=== PATIENT | male | born 1945 | race Caucasian/White ===

== ENCOUNTER 2018-07-25 22:00 | Observation (INO) | payer OTHER ==
[2018-07-25] MEDS ORDERED: NS 1,000 ML IV ONE (22:11)
[2018-07-25] MEDS ORDERED: ASPIRIN 81 MG CHEWABLE TAB PO ONE (22:18)
--- NOTE | 2018-07-25 22:20 | EDPHY ---
H & P Stated Complaint: 1.5hr [employer] lower left CP sharp intermittantly lasting 5sec Time Seen by Provider: 07/25/18 22:19 HPI/ROS: HPI CHIEF COMPLAINT: Chest pain HISTORY OF PRESENT ILLNESS: 73-year-old male, history of hyperlipidemia and depression, presents emergency room with intermittent left-sided chest pain. Describes achy sensation nonradiating. Started approximately 2 hr ago EMS did check him out at his house however declined transport. Arrives to the emergency room by private vehicle. Still has ongoing left-sided chest pain. He denies radiation pain, denies nausea, denies vomiting, denies shortness of breath, denies pleuritic pain. Does report dyspnea on exertion recently as well as increasing fatigue. Past Medical History: Hyperlipidemia, depression Past Surgical History: No recent surgery Social History: Denies daily use of drugs alcohol tobacco. Family History: Noncontributory ROS REVIEW OF SYSTEMS: 10 Systems were reviewed and negative with the exception of the elements mentioned in the history of present illness. Exam Constitutional triage nursing summary reviewed, vital signs reviewed, awake/ alert. Eyes normal conjunctivae and sclera, EOMI, PERRLA. HENT normal inspection, atraumatic, moist mucus membranes, no epistaxis, neck supple/ no meningismus, no raccoon eyes. Respiratory clear to auscultation bilaterally, normal breath sounds, no respiratory distress, no wheezing. Cardiovascular rate normal, regular rhythm, no murmur, no edema, distal pulses normal. Gastrointestinal soft, non-tender, no rebound, no guarding, normal bowel sounds, no distension, no pulsatile mass. Genitourinary no CVA tenderness. Musculoskeletal no midline vertebral tenderness, full range of motion, no calf swelling, no tenderness of extremities, no meningismus, good pulses, neurovascularly intact. Skin pink, warm, & dry, no rash, skin atraumatic. Neurologic awake, alert and oriented x 3, AAOx3, moves all 4 extremities equally, motor intact, sensory intact, CN II-XII intact, normal cerebellar, normal vision, normal speech. Psychiatric normal mood/affect. Heme/Lymph/Immune no lymphadenopathy. Differential Diagnosis: Differential diagnosis includes but is not limited to: ACS, atypical chest pain, pneumothorax, pneumonia, pulmonary embolism, aortic dissection, congestive heart failure, tumor, musculoskeletal pain, esophageal pain, GERD, peptic ulcer disease, pancreatitis Medical Decision Making: Plan for this patient IV establishment with point care troponin, conveyor monitor, EKG, chest x-ray, full-dose aspirin rule out acute coronary syndrome Re-evaluation: EKG interpretation by me on record in [email or web address] system. Impression time of EKG 2211, sinus rhythm rate of 58 no signs of acute ischemia no ST elevation. ED x-ray chest one view cardiomegaly present. Otherwise unremarkable chest x- ray. Patient's troponin noted be negative Long discussion with the patient and patient's at bedside he agrees stay in the hospital overnight cardiac evaluation. Plan for admission for further cardiac evaluation. The patient has a negative troponin, nonischemic EKG, chest x-ray that shows no acute disease process except for cardiomegaly. Given the patient's cardiovascular risk factors which include his age 73, history of hyperlipidemia, hypertension, obesity and chest pain story plan for admission heart score. Spoke with the hospitalist service Dr. Olguin agrees to admit. Source: Patient - Personal History Current Tetanus/Diphtheria Vaccine: Yes Current Tetanus Diphtheria and Acellular Pertussis (TDAP): Yes - Medical/Surgical History Hx Asthma: No Hx Chronic Respiratory Disease: No Hx Diabetes: No Hx Cardiac Disease: No Hx Renal Disease: No Hx Cirrhosis: No Hx Alcoholism: No Hx HIV/AIDS: No Hx Splenectomy or Spleen Trauma: No Other PMH: right shoulder surgery - Social History Smoking Status: Never smoked Constitutional: Initial Vital Signs Temperature (C) 36.6 C 07/25/18 22:01 Heart Rate 66 07/25/18 22:01 Respiratory Rate 16 07/25/18 22:01 Blood Pressure 157/83 H 07/25/18 22:01 O2 Sat (%) 94 07/25/18 22:01 O2 Delivery Mode Nasal Cannula O2 (L/minute) 2 Allergies/Adverse Reactions: No Known Allergies Allergy (Verified 07/26/18 08:39) Home Medications: Medication Instructions Recorded Sertraline HCl [Zoloft 100mg (*)] 100 mg PO HS 07/25/18 Simvastatin [Zocor] 40 mg PO HS 07/25/18 Aspirin [Aspirin 81mg (*)] 81 mg PO HS 07/26/18 Herbals/Supplements -Info Only 1 ea PO DAILY 07/26/18 Multivitamins [Multivitamin (*)] 1 each PO HS 07/26/18 Vitamin B Complex [Vitamin B 1 each PO HS 07/26/18 Complex (OTC)] Medical Decision Making - Data Points Laboratory Results: Laboratory Results 07/25/18 22:12 07/25/18 22:12 Medications Given: Discontinued Medications Aspirin (Aspirin) 324 mg PO EDNOW ONE Stop: 07/25/18 22:19 Last Admin: 07/25/18 22:30 Dose: Not Given Sodium Chloride (Ns) 1,000 mls @ 0 mls/hr IV EDNOW ONE; Wide Open PRN Reason: Protocol Stop: 07/25/18 22:12 Last Admin: 07/25/18 22:21 Dose: 1,000 mls Nitroglycerin (Nitrostat) 0.4 mg SL EDNOW ONE Stop: 07/25/18 22:31 Last Admin: 07/25/18 22:35 Dose: 0.4 mg Point of Care Test Results: Chemistry 07/25/18 22:25 POC Troponin I 0.00 ng/mL ng/mL (0.00-0.08) Departure - Departure Disposition: [facility] Inpatient Acute Clinical Impression: Chest pain Qualifiers: Chest pain type: unspecified Qualified Code(s): R07.9 - Chest pain, unspecified Condition: Good
[2018-07-25] MEDS ORDERED: NITROGLYCERIN 0.4 MG BTL SL ONE (22:30)
[2018-07-25 22:39] LABS: PLATELET COUNT 240 10^3/uL (150-400)
[2018-07-25 22:48] LABS: INR 0.97 (0.83-1.16); PROTIME(PATIENT) 12.5 SEC (12.0-15.0)
[2018-07-26] MEDS ORDERED: ONDANSETRON 4 MG/2 ML VIAL IVP PRN (00:12)
[2018-07-26] MEDS ORDERED: ACETAMINOPHEN 325 MG TAB PO PRN (00:12)
[2018-07-26] MEDS ORDERED: HYDROCODONE/APAP 5/325 TAB PO PRN (00:12)
[2018-07-26] MEDS ORDERED: ONDANSETRON DISINTEGRATING 4 MG TAB PO PRN (00:12)
[2018-07-26] MEDS ORDERED: NITROGLYCERIN 0.4 MG BTL SL PRN (00:16)
--- NOTE | 2018-07-26 01:54 | PDGENHP ---
History and Physical - Chief Complaint chest pain - History of Present Illness Source-patient provides history appears reliable. His is at bedside supplements details. EMR was reviewed and case discussed with ED provider. Pleasant 73-year-old gentleman with past medical history significant for HLD, NEREIDA on CPAP, obesity (BMI 34.1), depression who presents emergency department today with complaints of new onset left-sided chest pain and several months of dyspnea on exertion. Patient's symptoms started approximately 8:00 p.m. Before her arrival on. He did have EMS services evaluate his symptoms but declined transport to the ED. He took 2 full-dose aspirins. He describes his chest symptoms as sharp intermittent in the left mid lateral clavicular line. Pain was short lived approximately every 5 sec. He denies any nausea or vomiting. No radiating pain. No shortness of breath or diaphoresis is reported. Patient does admit that over the last several months he has been experiencing increasing episodes of dyspnea on exertion. He denies any cough, rhinorrhea, no sore throat, no diarrhea or vomiting. Patient without significant medication changes he does take a lot a home vitamin supplementation. He has been cutting back on his sertraline slowly and today was had a left final dose. History Information - Allergies/Home Medication List Allergies/Adverse Reactions: No Known Allergies Allergy (Unverified 07/25/18 22:05) Home Medications: SIMVASTATIN 07/25/18 [Last Taken Unknown] Sertraline HCl 07/25/18 [Last Taken Unknown] I have personally reviewed and updated: family history, medical history, social history, surgical history - Past Medical History Additional medical history: HLD, NEREIDA on CPAP, depression, BMI 34.1 - Surgical History Additional surgical history: Right shoulder, hernia - Family History Additional family history: The-CVA CAD and CHF H greater than 65. - Social History Smoking Status: Never smoked Alcohol Use: Occasionally (Socially) Drug Use: None Additional social history: Patient is lives with his . He denies any tobacco or illicit drugs. He has an occasional drink. Review of Systems Review of Systems: ROS: 10pt was reviewed & negative except for what was stated in HPI & below Constitutional: Reports: no symptoms EENMT: Reports: no symptoms. Denies: nose congestion, sore throat Cardiac: Reports: chest pain. Denies: edema, syncope Respiratory: Reports: shortness of breath (CONTRERAS particularly at inclined.). Denies: cough, orthopnea Gastrointestinal: Reports: no symptoms Genitourinary: Reports: no symptoms Muscolosketal: Reports: no symptoms Skin: Reports: no symptoms Neurological: Reports: no symptoms Hematologic/Lymphatic: Reports: no symptoms Physical Exam Physical Exam: Selected Entries 07/25/18 22:01 Blood Pressure Automatic Method Heart Rate 66 Respiratory 16 Rate O2 Sat (%) 94 Temperature (C) 36.6 C Blood Pressure 157/83 H Mean Arterial 107 H Pressure (MAP) O2 Delivery Room Air Mode Temperature Oral Source Temp Pulse Resp BP Pulse Ox 36.8 C 54 L 18 127/80 H 96 07/26/18 00:42 07/26/18 00:42 07/26/18 00:42 07/26/18 00:42 07/26/18 00:42 O2 (L/minute) 2 Constitutional: no apparent distress, appears nourished, other (NAD. Patient is sitting up in rney reading. is at bedside.) Eyes: PERRL, anicteric sclera, EOMI, No scleral injection Ears, Nose, Mouth, Throat: moist mucous membranes, other (No nasal discharge.), No poor dentition Cardiovascular: regular rate and rhythym, no murmur, rub, or gallop, pulses symmetric bilaterally, bradycardia, edema (Trace on the lower extremities.) Peripheral Pulses: 2+: dorsalis-pedis (R), dorsalis-pedis (L) Respiratory: no respiratory distress, no rales or rhonchi, clear to auscultation , No inspiratory crackles Gastrointestinal: normoactive bowel sounds, soft, non-tender abdomen, no palpable masses, other (Obese abdomen), No distension Genitourinary: no bladder tenderness, No edgar in urethra Skin: warm, normal color, no rashes or abrasions Musculoskeletal: full muscle strength Lab Data & Imaging Review 07/25/18 22:12 07/25/18 22:12 WBC 4.81 10^3/uL (3.80-9.50) 07/25/18 22:12 RBC 4.31 10^6/uL (4.40-6.38) L 07/25/18 22:12 Hgb 14.4 g/dL (13.7-17.5) 07/25/18 22:12 Hct 41.3 % (40.0-51.0) 07/25/18 22:12 MCV 95.8 fL (81.5-99.8) 07/25/18 22:12 MCH 33.4 pg (27.9-34.1) 07/25/18 22:12 MCHC 34.9 g/dL (32.4-36.7) 07/25/18 22:12 RDW 12.4 % (11.5-15.2) 07/25/18 22:12 Plt Count 240 10^3/uL (150-400) 07/25/18 22:12 MPV 9.9 fL (8.7-11.7) 07/25/18 22:12 Neut % (Auto) 35.2 % (39.3-74.2) L 07/25/18 22:12 Lymph % (Auto) 44.9 % (15.0-45.0) 07/25/18 22:12 [place] % (Auto) 12.5 % (4.5-13.0) 07/25/18 22:12 Eos % (Auto) 6.4 % (0.6-7.6) 07/25/18 22:12 Baso % (Auto) 0.8 % (0.3-1.7) 07/25/18 22:12 Nucleat RBC Rel Count 0.0 % (0.0-0.2) 07/25/18 22:12 Absolute Neuts (auto) 1.69 10^3/uL (1.70-6.50) L 07/25/18 22:12 Absolute Lymphs (auto) 2.16 10^3/uL (1.00-3.00) 07/25/18 22:12 Absolute Monos (auto) 0.60 10^3/uL (0.30-0.80) 07/25/18 22:12 Absolute Eos (auto) 0.31 10^3/uL (0.03-0.40) 07/25/18 22:12 Absolute Basos (auto) 0.04 10^3/uL (0.02-0.10) 07/25/18 22:12 Absolute Nucleated RBC 0.00 10^3/uL (0-0.01) 07/25/18 22:12 Immature Gran % 0.2 % (0.0-1.1) 07/25/18 22:12 Immature Gran # 0.01 10^3/uL (0.00-0.10) 07/25/18 22:12 PT 12.5 SEC (12.0-15.0) 07/25/18 22:12 INR 0.97 (0.83-1.16) 07/25/18 22:12 APTT 43.4 SEC (23.0-38.0) H 07/25/18 22:12 Sodium 139 mEq/L (135-145) 07/25/18 22:12 Potassium 4.1 mEq/L (3.5-5.2) 07/25/18 22:12 Chloride 105 mEq/L (97-110) 07/25/18 22:12 Carbon Dioxide 26 mEq/l (22-31) 07/25/18 22:12 Anion Gap 8 mEq/L (6-14) 07/25/18 22:12 BUN 20 mg/dL (7-23) 07/25/18 22:12 Creatinine 0.9 mg/dL (0.7-1.3) 07/25/18 22:12 Estimated GFR > 60 07/25/18 22:12 Glucose 99 mg/dL (70-100) 07/25/18 22:12 Calcium 9.5 mg/dL (8.5-10.4) 07/25/18 22:12 Magnesium 2.4 mg/dL (1.6-2.3) H 07/25/18 22:12 Total Bilirubin 0.4 mg/dL (0.1-1.4) 07/25/18 22:12 Conjugated Bilirubin 0.3 mg/dL (0.0-0.5) 07/25/18 22:12 Unconjugated Bilirubin 0.1 mg/dL (0.0-1.1) 07/25/18 22:12 AST 62 IU/L (17-59) H 07/25/18 22:12 ALT 53 IU/L (21-72) 07/25/18 22:12 Alkaline Phosphatase 85 IU/L (38-126) 07/25/18 22:12 POC Troponin I 0.00 ng/mL (0.00-0.08) 07/25/18 22:25 NT-Pro-B Natriuret Pep 94 pg/mL (0-125) 07/25/18 22:12 Total Protein 7.3 g/dL (6.3-8.2) 07/25/18 22:12 Albumin 4.7 g/dL (3.5-5.0) 07/25/18 22:12 Lipase 247 IU/L (23-300) 07/25/18 22:12 Imaging Review: Chest 1 View History: Chest Pain. Comparison: None available. Findings: Left basilar opacity is noted. Coarsened interstitial markings are likely age-related. Cardiac silhouette and pulmonary vascularity are within normal limits. Degenerative changes of the thoracic spine are evident. Impression: Left basilar opacity likely represents atelectasis or an epicardial fat pad. Dictated By: Eryn Washington MD Visualized and Interpreted EKG results: Yes EKG additional interpertation: NSR 50s. Lad. QTC is 389. No acute ST changes. Some mild T-wave flattening in lead 3 nonspecific. QTC is 389. Assessment & Plan Assessment: Pleasant 73-year-old gentleman with past medical history significant for HLD, NEREIDA on CPAP, obesity (BMI 34.1), depression who presents emergency department today with complaints of new onset left-sided chest pain and several months of dyspnea on exertion. # chest pain - patient without previous symptoms. Heart score is 4. His symptoms did resolve with single dose nitroglycerin. He had previously taken 2 full-dose aspirin prior to arrival. EKG is unremarkable. Will plan to trend troponins. Patient has been reporting some dyspnea on exertion without edema or PND several months. Will obtain echocardiogram in the morning. # dyspnea on exertion - echocardiogram in the morning. Stress testing anticipated as noted above. Symptoms have been ongoing for several months but did not correlate with all types of activity. Patient reports he rode 20 miles on his bike and did not have any symptoms however walk approximately 20 ft upper roof on the incline and developed some lightheadedness had the dyspnea. # elevated blood pressures without reported history of HTN. Patient otherwise asymptomatic. He is not currently on any treatment and reports that his baseline SBP is in the 130s. Has improved since arrival and after nitroglycerin. # HLD - continue statin. Check lipid panel. # NEREIDA on CPAP - patient denies any PND orthopnea. Requested the patient bring in his machine if she should stay additional day. # obesity BMI of 34.1 discontinuing. - patient reports he remains very active. He cycles approximately 20 miles on occasion. He mostly has no difficulties with walking however inclined he has increased symptomatology as noted above. # depression - patient had been titrating down on his sertraline and today was his last dose. Amenable to forgo last dose FEN - diet upon arrival to floor then npo except ice chips/sips pending stress testing results. electrolytes adequate replacement prn. PPX - SCDs. holding anticoagulation will encourage mobilization. Dispo - Patient admitted for observation on PCU floor for additional evaluation of chest pain and CONTRERAS.
[2018-07-26 06:29] LABS: PLATELET COUNT 217 10^3/uL (150-400)
[2018-07-26] MEDS ORDERED: REGADENOSON 0.4 MG/5 ML SYR IVP ONE (10:16)
[2018-07-26 12:08] VITALS: BP 146/84
--- NOTE | 2018-07-26 12:39 | PDCARST ---
CAR Stress Test Results Type of Stress Test: Lexiscan Indication: cp Description of Procedure: After informed consent was obtained, pt was established to ECG, blood pressure, HR and oximetry monitoring. STRESS EKG AND HEMODYNAMIC DATA. Resting heart rate: 53 BPM. Resting ECG: SR. Resting blood pressure: 116/73 mmHg. O2 saturation at rest: 92%. Peak heart rate: 79 BPM. Peak blood pressure: 124/70 mmHg. Arrhythmias: none. Symptoms: The patient experienced no typical symptoms of angina during stress or recovery. Stress/Infusion ECG: No change in rhythm with no significant ST/T wave changes. Stress/infusion O2 saturation: 97% Impression: Uneventful Lexiscan infusion. Conclusion: Await nuclear images.
--- NOTE | 2018-07-26 15:24 | ASDISCHSUM ---
Discharge Information Plan Status:Home with No Needs Medically Cleared to Leave:07/26/2018 Discharge Date:07/26/2018 03:05 PM CM D/C Disposition:Home, Routine, Self-Care ADT D/C Disposition:Home, Routine, Self-Care Projected Discharge Date:07/26/2018 03:05 PM Transportation at D/C: Discharge Delay Reason: Follow-Up Date:07/26/2018 03:05 PM Discharge Slot: Final Diagnosis: Placement Information Patient Contact Information Contact Name:ZULEMA Relationship: Address:[address] [place] [address] City:[place] Alternate Phone: [facility]/Zip Code:[place] [address] Email: Financial Information Financial Class:Medicare Advantage Plans Primary Plan Desc:[facility] ADVANTAGE PLANS Primary Plan Number:[id number] Secondary Plan Desc: Secondary Plan Number: Assessment Information LACE LACE Length of stay for Answers: Less than 1 day current admission Acuity / Level of Answers: No Care: Did the patient have an inpatient admission? Comorbidities - select Answers: Other Notes: HLD all that apply # of Emergency department Answers: 1-2 visits in the last 6 months Social determinants Answers: Mental health diagnosis (anxiety, depression, pers onality disorders, etc.) Score: 5 Date Signed: 07/26/2018 03:23 PM Electronically Signed By:Patricia Pack Intervention Information
--- NOTE | 2018-07-26 16:21 | HOSPPROG ---
Hospitalist Progress Note Assessment/Plan: Date of Admission: 07/25/2018 Date of Discharge: 07/26/2018 Consults: N/A Procedures: MPS Followup: PCP Hospital Course Problem List: Pleasant 73-year-old gentleman with past medical history significant for HLD, NEREIDA on CPAP, obesity (BMI 34.1), depression who presents emergency department today with complaints of new onset left-sided chest pain and several months of dyspnea on exertion. # chest pain - patient without previous symptoms. Heart score is 4. His symptoms did resolve with single dose nitroglycerin. He had previously taken 2 full-dose aspirin prior to arrival. EKG is unremarkable. Trended troponins overnight which were negative. Patient has been reporting some dyspnea on exertion without edema or PND several months. MPS performed which did not show any acute ischemic changes. # dyspnea on exertion - Stress testing anticipated as noted above. Symptoms have been ongoing for several months but did not correlate with all types of activity. Patient reports he rode 20 miles on his bike and did not have any symptoms however walk approximately 20 ft upper roof on the incline and developed some lightheadedness had the dyspnea. # elevated blood pressures without reported history of HTN. Patient otherwise asymptomatic. He is not currently on any treatment and reports that his baseline SBP is in the 130s. Has improved since arrival and after nitroglycerin. # HLD - continue statin. # NEREIDA on CPAP - patient denies any PND orthopnea. Requested the patient bring in his machine if she should stay additional day. # obesity BMI of 34.1 discontinuing. - patient reports he remains very active. He cycles approximately 20 miles on occasion. He mostly has no difficulties with walking however inclined he has increased symptomatology as noted above. # depression - patient had been titrating down on his sertraline and today was his last dose. Amenable to forgo last dose Time spent on discharge was >35 minutes with >50% of time spent on patient education and counseling. Subjective: Pt reports no chest pain this AM Objective: Vital Signs Temp Pulse Resp BP Pulse Ox 36.4 C 60 16 146/84 H 95 07/26/18 12:04 07/26/18 12:04 07/26/18 12:04 07/26/18 12:04 07/26/18 12:04 Laboratory Results 07/26/18 06:19 07/26/18 06:19 0407/26/18 07/27/18 05:59 05:59 05:59 Intake Total 1200 Balance 1200 PT 12.5 SEC (12.0-15.0) 07/25/18 22:12 INR 0.97 (0.83-1.16) 07/25/18 22:12 - Physical Exam Constitutional: no apparent distress Eyes: PERRL Ears, Nose, Mouth, Throat: moist mucous membranes Cardiovascular: regular rate and rhythym Respiratory: no respiratory distress Gastrointestinal: soft, non-tender abdomen Skin: warm Musculoskeletal: full muscle strength Neurologic: AAOx3 Psychiatric: anxious ICD10 Worksheet Patient Problems: Problems Problem Status Onset Chest pain Acute
--- NOTE | 2018-07-26 17:42 | ECHO ---
[email or web address] [address] [address] Main: [phone] Echocardiography Examination Transthoracic Name: LANA ARCEO MR#: [id number] Study Date: 07/26/2018 Study Time: 10:09 AM Date of : 1945 Age: 73 year(s) Height: 182.9 cm (72 in.) Weight: 113.85 kg (251 lb.) BSA: 2.35 m2 Gender: Male Examination: Echo Contrast: Image Quality: Rhythm: Normal sinus rhythm Heart Rate: 60 bpm BP: 139 mmHg/80 mmHg Indication: Dyspnea on exertion Procedure Staff Referring Physician: Equipment Operat0R: Geraldo Anguiano RDCS Reading Physician: Arturo Roche MD Requesting Provider: Indication: Dyspnea on exertion Measurements Chambers AV/MV Label Value Normal Value Label Value Normal Value LVDd, 2D 4.8 cm (4.2cm - 5.9cm) MV E Vmax 0.92 m/s LVDs, 2D 2.7 cm (2.1cm - 4cm) MV A Vmax 0.95 m/s IVSd, 2D 0.9 cm (0.6cm - 1.1cm) MV E/A 0.97 LVPWd, 2D 1 cm (0.6cm - 1cm) MV E/E' lateral 9.1 LVEF, 2D 74 % (54% - 74%) MV E/E' septal 13.3 (0.45 - 1.25) RVDd, 2D 2.6 cm (1.9cm - 3.8cm) MV E' septal 0.07 m/s LA Volume, BP 54 ml (18ml - 58ml) MV E' lateral 0.1 m/s LADs, 2D 3.5 cm (3cm - 4cm) MV E/E' mean 10.82 LAESV index, BP 23 ml/m2 MV E' mean 0.08 m/s Additional Vessels TV/PV Label Value Normal Value Label Value Normal Value AoRoot, MM 3.7 cm (2.2cm - 3.7cm) RA Pressure 5 mmHg RVSP 24 mmHg TR Pmax 19 mmHg TR Vmax 2.17 m/s PV PGmax 3 mmHg PV Vmax, Caliper 0.92 m/s (0.6m/s - 0.9m/s) Conclusions Patient: LANA ARCEO Study Date: 07/26/2018 Page 1 of 3 10:09 AM Left Ventricle: Left ventricle is normal in size. EF range is estimated at 60 % - 65 %. Left ventricular diastolic function parameters are normal. Mitral Valve: Mitral valve appears structurally normal. Aortic Valve: The aortic valve is structurally normal and trileaflet. Tricuspid Valve: Pulmonary artery pressure normal. IVC: The inferior vena cava is normal in size and course. Pericardium: No pericardial effusion. Findings Left Ventricle: Left ventricle is normal in size. Normal global systolic left ventricular function. EF range is estimated at 60 % - 65 %. Left ventricle wall thickness is normal. There are no regional wall motion abnormalities. Left ventricular diastolic function parameters are normal. IVS: The septum is intact. Right Ventricle: Normal size right ventricle. Right ventricular systolic function is normal. Left Atrium: The left atrium is normal in size. IAS: Normal appearing atrial septum. Right Atrium: The right atrium is normal in size. Mitral Valve: Mitral valve appears structurally normal. No mitral regurgitation. No mitral valve stenosis. Aortic Valve: The aortic valve is structurally normal and trileaflet. No aortic valve regurgitation. There is no aortic stenosis. Tricuspid Valve: Tricuspid valve leaflets are normal in appearance and function. No significant tricuspid regurgitation. No tricuspid valve stenosis. Right Ventricular systolic pressure is measured at 24 mmHg. Pulmonary artery pressure normal. Pulmonic Valve: Pulmonic leaflets exhibit normal cuspal separation. No pulmonic valve regurgitation is evident. There is no pulmonic valve stenosis. Aorta: The aorta is normal. The aortic root size in M-mode measures 3.7 cm. Aorta Measurements AoRoot, MM is 3.7 cm. Pulmonary Artery: The pulmonary artery morphology appears normal. IVC: The inferior vena cava is normal in size and course. Pericardium: Patient: LANA ARCEO Study Date: 07/26/2018 Page 2 of 3 10:09 AM No pericardial effusion. No pleural effusion present. Exam Details Procedure Ordered: Echo (No Signature Object) Patient: LANA ARCEO Study Date: 07/26/2018 Page 3 of 3 10:09 AM [id number]
--- NOTE | 2018-07-27 07:47 | CPEKG ---
Test Reason : OPEN Blood Pressure : / mmHG Vent. Rate : 058 BPM Atrial Rate : 058 BPM P-R Int : 190 ms QRS Dur : 094 ms QT Int : 396 ms P-R-T Axes : 046 -21 035 degrees QTc Int : 389 ms Sinus rhythm Borderline left axis deviation Confirmed by Beto Grimaldo ([id number]) on 07/27/2018 7:45:58 AM Referred By: Beto Grimaldo Confirmed By:Beto Grimaldo
== END 2018-07-26 15:05 | disposition home or self-care (01) ==
LOC: F2W 07-26 01:20
PROVIDERS: ADMIT Family Medicine; ATTEND Internal Medicine
DX: R07.9 Chest pain, unspecified (principal); R06.00 Dyspnea, unspecified; G47.33 Obstructive sleep apnea (adult) (pediatric); F32.9 Major depressive disorder, single episode, unspecified; E78.5 Hyperlipidemia, unspecified; E66.9 Obesity, unspecified; Z68.34 Body mass index [BMI] 34.0-34.9, adult; R03.0 Elevated blood-pressure reading, without diagnosis of hypertension
CPT/HCPCS: 71045; 78452; 93005; 93017; 93306; 96360; 99285; A9500; G0378; J2785; 84484-ER